=== PATIENT | female | born 1975 | race Caucasian/White ===

== ENCOUNTER → 2016-10-20 | Outpatient (CLI) | payer BC ==
[~2016-10-20] MED LIST: ACET-1256 PO; ACET325T96 PO; ALPHTAB4 PO; AZEL30SP NAE; CETI10TA84 PO; CYAN100T PO; DESO1TAB PO; FLUT0.15 NAE; MULT-506 PO; PRLSR20 PO
== END | disposition home or self-care (01) ==
LOC: C.PAPS 09:32
PROVIDERS: ATTEND Obstetrics & Gynecology
DX: Z01.419 Encounter for gynecological examination (general) (routine) without abnormal findings (principal)

== ENCOUNTER → 2016-11-06 | Outpatient (CLI) | payer SELFPAY | END | disposition home or self-care (01) | LOC: C.LAB 10:21 | PROVIDERS: ATTEND Nutritionist ==

== ENCOUNTER → 2016-11-29 | Outpatient (CLI) | payer BC ==
[2016-11-29 17:17] LABS: THYROID STIMULATING HORMONE 0.822 uIu/ml (0.300-4.500)
== END | disposition home or self-care (01) ==
LOC: C.LAB1850 15:59
PROVIDERS: ATTEND Internal Medicine Endocrinology, Diabetes & Metabolism
DX: R94.6 Abnormal results of thyroid function studies (principal)

== ENCOUNTER → 2017-02-07 | Outpatient (CLI) | payer BC ==
[2017-02-07 10:26] LABS: THYROID STIMULATING HORMONE 0.328 uIu/ml (0.300-4.500)
== END | disposition home or self-care (01) ==
LOC: C.LAB1850 09:06
PROVIDERS: ATTEND Internal Medicine Endocrinology, Diabetes & Metabolism
DX: R94.6 Abnormal results of thyroid function studies (principal)

== ENCOUNTER → 2017-11-25 | Outpatient (CLI) | payer BC ==
[~2017-11-25] MED LIST changes: +ACET-1693 PO; -ACET325T96 PO
== END | disposition home or self-care (01) ==
LOC: C.PAPS 11:41
PROVIDERS: ATTEND Obstetrics & Gynecology
DX: Z01.419 Encounter for gynecological examination (general) (routine) without abnormal findings (principal)